=== PATIENT | male | born 1995 | race Caucasian/White ===

== ENCOUNTER 2022-10-26 14:50 | Emergency (ER) | payer OTHER ==
[~2022-10-26] VITALS: Ht 193 cm; Wt 102.3 kg
[2022-10-26 14:50] VITALS: TEMP 98.4
[2022-10-26] MEDS ORDERED: OMEP40CA4 PO (15:00)
[2022-10-26] MEDS ORDERED: BACTRIM 160MG/800MG DS TAB PO ONE (16:45)
[2022-10-26] MEDS ORDERED: MUPI2OI TOP (16:47)
[2022-10-26] MEDS ORDERED: BACT800T5 PO (16:47)
[2022-10-26 16:53] VITALS: BP 114/70; O2SAT 98
== END 2022-10-26 16:55 | disposition home or self-care (01) ==
LOC: M ED 14:50
DX: L73.1 Pseudofolliculitis barbae (principal); K21.9 Gastro-esophageal reflux disease without esophagitis; Z79.83 Long term (current) use of bisphosphonates; Z79.899 Other long term (current) drug therapy

== ENCOUNTER 2023-03-30 09:07 | Day surgery (SDC) | payer OTHER ==
[~2023-03-30] VITALS: Ht 193 cm; Wt 101.6 kg
[~2023-03-30 09:07] MED LIST: BACT800T5 PO; MUPI2OI TOP; NS 1,000 ML IV ONE; OMEP40CA4 PO; PRIL20TA2 PO; dayquil; nyquil
[2023-03-30] MEDS ORDERED: fentaNYL 100 MCG/2 ML INJECTION As Ordered ONE (10:14)
[2023-03-30 10:37] VITALS: TEMP 98.1
[2023-03-30 10:55] VITALS: BP 112/63; O2SAT 100
[2023-03-30] MEDS ORDERED: LIDOCAINE 2% 100MG/5ML SDV (FOR ANES.) As Ordered ONE (11:05)
[2023-03-30] MEDS ORDERED: propofoL 200 MG/20 ML VIAL As Ordered ONE (11:05)
== END 2023-03-30 11:05 | disposition home or self-care (01) ==
LOC: M OPP 09:07
PROVIDERS: ATTEND Internal Medicine Gastroenterology
DX: K22.89 Other specified disease of esophagus (principal); R12 Heartburn
CPT/HCPCS: 43239; 88305; J3010